=== PATIENT | male | born 1980 | race Caucasian/White ===

== ENCOUNTER 2021-02-05 16:31 | Emergency (ER) | payer OTHER ==
[~2021-02-05] VITALS: Ht 195.6 cm; Wt 127.0 kg
[2021-02-05] MEDS ORDERED: SUPER THERAVIT1 EACH PO (16:56)
[2021-02-05] MEDS ORDERED: MEDROLDOSEPACK PO (17:42)
[2021-02-05] MEDS ORDERED: PROAIR HFA8.5 GM INH (17:42)
[2021-02-05] MEDS ORDERED: TESSALON PERLE100 MG PO (17:42)
[2021-02-05] MEDS ORDERED: PROMETHAZI6.25 MG/5 PO (17:44)
[2021-02-05 17:50] VITALS: BP 175/99
== END 2021-02-05 17:50 | disposition home or self-care (01) ==
LOC: M.ERS 16:31
DX: U07.1 COVID-19 (principal); J40 Bronchitis, not specified as acute or chronic; F41.9 Anxiety disorder, unspecified; Z79.899 Other long term (current) drug therapy